=== PATIENT | male | born 1980 | race Caucasian/White ===

== ENCOUNTER 2023-12-15 19:53 | Emergency (ER) | payer OTHER ==
[~2023-12-15] VITALS: Ht 182.9 cm; Wt 86.0 kg
[2023-12-15] MEDS ORDERED: OMEPRAZOLE20 MG PO (20:16)
[2023-12-15] MEDS ORDERED: BENICAR40 MG PO (20:16)
[2023-12-15] MEDS ORDERED: NORVASC10 MG PO (20:16)
[2023-12-15 21:19] VITALS: BP 154/105
== END 2023-12-15 21:21 | disposition home or self-care (01) ==
LOC: ED 19:53
DX: S80.12XA Contusion of left lower leg, initial encounter (principal); I10 Essential (primary) hypertension; Z88.5 Allergy status to narcotic agent; Z88.8 Allergy status to other drugs, medicaments and biological substances; Z79.899 Other long term (current) drug therapy; W18.49XA Other slipping, tripping and stumbling without falling, initial encounter
CPT/HCPCS: 73590; 99283